=== PATIENT | female | born 1955 | race Caucasian/White ===

== ENCOUNTER 2024-03-31 13:00 | Emergency (ER) | payer MEDICARE, SELFPAY ==
[2024-03-31 13:01] VITALS: BP 114/55; PULSE 51; RESP 16; TEMP 35.6; O2SAT 98; BMI 30.9
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
--- NOTE | 2024-03-31 13:25 | RAD_ITS ---
STUDY: X-RAY - UNILATERAL RIBS ( RIGHT ) WITH CHEST REASON FOR EXAM: Female, 68 years old. Rib pain TECHNIQUE - RIBS: 4 view(s) of the ribs. TECHNIQUE - CHEST: Single PA view of the chest. COMPARISON: None. FINDINGS - RIBS: I suspect a nondisplaced fracture of the right seventh rib anterolaterally. FINDINGS - CHEST: EKG electrodes are seen. The lungs are clear and expanded. Scattered calcified granulomas. Mild degree of elevation of the right hemidiaphragm. There is no demonstrated pleural abnormality. Normal size heart. Normal mediastinum and jesús. Normal visualized pulmonary arteries. Normal visualized aortic arch and descending thoracic aorta. Normal visualized thoracic spine. Normal visualized ribs, clavicles, and shoulders. There is no demonstrated abnormality of the visualized soft tissue structures of the upper abdomen. RAD/Ribs Uni Min 3V w/PA Chest IMPRESSION: RIBS: I suspect a nondisplaced fracture of the right seventh rib anterolaterally. CHEST: Normal x-ray examination of the chest. Electronically Signed: Olman Grissom MD at 13:59 EDT ,
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
[2024-03-31 14:59] VITALS: BP 97/54; PULSE 61; RESP 14; TEMP 36.6; O2SAT 97
== END 2024-03-31 15:02 | disposition home or self-care (01) ==
PROVIDERS: Emergency Provider Emergency Medicine; Visit Provider Emergency Medicine
DX: S22.31XA Fracture of one rib, right side, initial encounter for closed fracture (principal); S70.01XA Contusion of right hip, initial encounter; V47.5XXA Car driver injured in collision with fixed or stationary object in traffic accident, initial encounter
CPT/HCPCS: 71101; 72170; 99282